=== PATIENT | female | born 1990 | race Hispanic/Latino ===

== ENCOUNTER 2017-03-03 00:58 | Inpatient (IN) ==
[2017-03-03] MEDS ORDERED: LR 1,000 ML IV SCH (01:24)
[2017-03-03] MEDS ORDERED: STADOL IV PRN (01:24)
[2017-03-03] MEDS ORDERED: PITOCIN 30 UNITS/LR 30 UNITS/500 ML IV.SOLN IV SCH (01:24)
[2017-03-03] MEDS ORDERED: PEPCID PO ONE (01:24)
[2017-03-03] MEDS ORDERED: AMPICILLIN 2 GM/NS 2 GM/100 ML IVPB IV ONE (01:24)
[2017-03-03] MEDS ORDERED: PEPCID IV PRN (01:24)
[2017-03-03] MEDS ORDERED: ZOFRAN IV PRN (01:24)
[2017-03-03] MEDS ORDERED: KEFZOL 1 GM/D5W 1 GM/50 ML IVPB IV PRN (01:24)
[2017-03-03] MEDS ORDERED: REGLAN PO ONE (01:24)
[2017-03-03] MEDS ORDERED: TYLENOL PO PRN (01:24)
[2017-03-03] MEDS ORDERED: PEPCID PO PRN (01:24)
[2017-03-03] MEDS ORDERED: SODIUM CHLORIDE 0.9% INJ SCH (01:30)
[2017-03-03 01:59] LABS: MANUAL DIFF NEEDED? NO
[2017-03-03 02:09] LABS: BASO% 0.2 % (0.0-0.8); EOS# 0.02 X1000 (0.0-0.7); EOS% 0.2 % (0.0-10.0); HEMATOCRIT 32.9 % (37.0-47.0); HEMOGLOBIN 10.8 g/dL (12.0-16.0); IMM GRAN# 0.02 X1000 (0.0-0.04); IMM GRAN% 0.2 % (0.0-0.5); LYMPH# 1.23 X1000 (1.2-3.4); LYMPH% 12.9 % (20.5-51.1); MCH 28.2 PG (27-31); MCHC 32.8 g/dL (33-37); MCV 85.9 FL (81-99); MONO# 0.58 X1000 (0.11-0.59); MONO% 6.1 % (1.7-9.3); MPV 13.3 FL (7.4-10.4); NEUT% 80.4 % (42.2-75.2); PLT 165 X1000 (130-400); RBC 3.83 XMIL (4.2-5.4)
[2017-03-03] MEDS ORDERED: BOOSTRIX VACCINE IM ONE (02:55)
[2017-03-03] MEDS ORDERED: M-M-R II VACCINE SUBQ ONE (02:55)
[2017-03-03] MEDS ORDERED: PITOCIN 20 UNITS/LR 20 UNITS/1,000 ML IV.SOLN IV SCH (02:55)
[2017-03-03] MEDS ORDERED: AMBIEN PO PRN (02:55)
[2017-03-03] MEDS ORDERED: PERI MEDS (DERMOPLAST/NUPERCAINAL/TUCKS) MISC PRN (02:55)
[2017-03-03] MEDS ORDERED: BENADRYL IV PRN (02:55)
[2017-03-03] MEDS ORDERED: PITOCIN IM PRN (02:55)
[2017-03-03] MEDS ORDERED: XYLOCAINE-MPF 1% INJ PRN (02:55)
[2017-03-03] MEDS ORDERED: CYTOTEC PO PRN (02:55)
[2017-03-03] MEDS ORDERED: BENADRYL PO PRN (02:55)
[2017-03-03] MEDS ORDERED: PERCOCET-10 PO PRN (02:55)
[2017-03-03] MEDS ORDERED: MINERAL OIL PO PRN (02:55)
[2017-03-03] MEDS ORDERED: HYDROXYZINE PO PRN (02:55)
[2017-03-03] MEDS ORDERED: PITOCIN 30 UNITS/LR 30 UNITS/500 ML IV.SOLN IV ONE (02:55)
[2017-03-03] MEDS ORDERED: HYDROXYZINE IM PRN (02:55)
[2017-03-03] MEDS: PERCOCET-5 PO PRN ×2 (03:30→13:18)
[2017-03-03] MEDS: MOTRIN PO PRN ×2 (03:30→13:18)
[2017-03-03] MEDS ORDERED: AMPICILLIN 1 GM/NS 1 GM/50 ML IVPB IV SCH (05:27)
--- NOTE | 2017-03-03 08:43 | HISTORY AND PHYSICAL ---
CHIEF COMPLAINT: Contractions. HISTORY OF PRESENT ILLNESS: This is a 26-year-old, G 2, P 1-0-0-1 with intrauterine between 35 and 37 weeks by a 35-week ultrasound, who presented to [place] this evening with complaints of contractions .the patient was previously seen earlier in the afternoon on 03/02/2017, found to be in latent labor and discharged home. On presentation, patient was noted to be 8 cm with a bulging bag. Cephalic presentation. The patient notes no vaginal bleeding. No fevers, chills, nausea, vomiting, chest pain, shortness of breath. Patient has good movement. Contractions q. 2 minutes. OBSTETRICAL HISTORY: G 1 full-term vaginal delivery. G 2 current. 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 PAST MEDICAL HISTORY: Denies. PAST SURGICAL HISTORY: Denies. MEDICATIONS: None. ALLERGIES: No known drug allergies. SOCIAL: Denies alcohol, tobacco or illicit drug use. FAMILY HISTORY: Noncontributory. REVIEW OF SYSTEMS: Otherwise negative. PHYSICAL EXAMINATION: GENERAL: Well-developed, well-nourished, female in no acute distress. HEENT: Pupils equal, round, react to light. Extraocular muscle intact. CHEST: Crepitation bilaterally. CV: Regular rate and rhythm. No murmurs, rubs, or gallops. ABDOMEN: Soft, nontender, gravid. EXTREMITIES: No clubbing, cyanosis, or edema. SKIN: No focal lesions. NEURO: No focal deficits. PELVIC: Sterile vaginal exam revealed a cervix that was 8 cm dilated, 90% effaced, -1 station. Membranes were ruptured. Clear fluid was noted. ASSESSMENT AND PLAN: 1. Intrauterine , between 35 and 37 weeks. 2. Active labor. 3. Group B Streptococcus unknown. 4. No care. PLAN: Admit to Labor and Delivery. Place on continuous electronic monitoring. Will anticipate normal spontaneous vaginal delivery. Ampicillin x1 dose was given for GBS prophylaxis on arrival. cc: Alli Khan MD
[2017-03-03] MEDS: PERICOLACE PO SCH (20:17)
[2017-03-04 06:33] LABS: HEMATOCRIT 29.7 % (37.0-47.0); HEMOGLOBIN 9.3 g/dL (12.0-16.0); MCH 27.8 PG (27-31); MCHC 31.3 g/dL (33-37); MCV 88.7 FL (81-99); MPV 13.4 FL (7.4-10.4); RBC 3.35 XMIL (4.2-5.4)
[2017-03-04] MEDS: MOTRIN PO PRN ×2 (10:06→18:15)
[2017-03-04] MEDS: PERICOLACE PO SCH (20:39)
[2017-03-05 08:08] VITALS: BP 116/74
== END 2017-03-05 12:05 | disposition home or self-care (01) ==
LOC: P.OPLD 00:58 → P.LD 01:03 → P.WC 20:05
PROVIDERS: ADMIT Obstetrics & Gynecology; ATTEND Obstetrics & Gynecology

== ENCOUNTER 2019-06-28 22:55 | Inpatient (IN) ==
[2019-06-28 23:21] LABS: URINE SOURCE VOIDED
[2019-06-28 23:36] LABS: BILIRUBIN URINE NEGATIVE (NEGATIVE); BLOOD URINE NEGATIVE (NEGATIVE); CLARITY CLEAR (CLEAR); COLOR YELLOW; GLUCOSE URINE NEGATIVE (NEGATIVE); KETONE URINE NEGATIVE (NEGATIVE); LEUKOCYTES URINE NEGATIVE (NEGATIVE); NITRITE URINE NEGATIVE (NEGATIVE); PH URINE 6.5; PROTEIN URINE NEGATIVE (NEGATIVE); SP GRAVITY URINE <= 1.005; UROBILINOGEN URINE 0.2 EU/dL (0.2-1.0)
[2019-06-28 23:45] LABS: UR AMPHETAMINES QUAL NONE DETECTED (NONE DETECT); UR BARBITUATES QUAL NONE DETECTED (NONE DETECT); UR BENZODIAZEPIN QUAL NONE DETECTED (NONE DETECT); UR CANNABINOIDS QUAL NONE DETECTED (NONE DETECT); UR COCAINE QUAL NONE DETECTED (NONE DETECT); UR METHADONE QUAL NONE DETECTED (NONE DETECT); UR OPIATES QUAL NONE DETECTED (NONE DETECT); UR OXYCODONE QUAL NONE DETECTED (NONE DETECT); UR PCP QUAL NONE DETECTED (NONE DETECT)
[2019-06-28 23:57] LABS: BASO# 0.02 X1000 (0.0-0.2); BASO% 0.2 % (0.0-0.8); EOS# 0.03 X1000 (0.0-0.7); EOS% 0.4 % (0.0-10.0); HEMATOCRIT 36.1 % (37.0-47.0); HEMOGLOBIN 11.5 g/dL (12.0-16.0); IMM GRAN# 0.04 X1000 (0.0-0.04); IMM GRAN% 0.5 % (0.0-0.5); LYMPH# 1.24 X1000 (1.2-3.4); LYMPH% 14.7 % (20.5-51.1); MCH 28.5 PG (27-31); MCHC 31.9 g/dL (33-37); MCV 89.4 FL (81-99); MONO# 0.52 X1000 (0.11-0.59); MONO% 6.2 % (1.7-9.3); MPV 12.3 FL (7.4-10.4); NEUT# 6.56 X1000 (1.4-6.5); PLT 197 X1000 (130-400); RBC 4.04 XMIL (4.2-5.4); RDW 13.8 % (11.5-14.5); WBC 8.41 X1000 (4.8-10.8)
[2019-06-29 01:10] LABS: RPR NON-REACTIVE (NONREACTIVE); RUBELLA SCREEN IMMUNE (IMMUNE)
[2019-06-29 01:11] LABS: RAPID HIV PRESUMPTIVE NEGATIVE
[2019-06-29] MEDS ORDERED: REGLAN PO ONE (01:21)
[2019-06-29] MEDS ORDERED: PEPCID IV PRN (01:21)
[2019-06-29] MEDS ORDERED: STADOL IV PRN (01:21)
[2019-06-29] MEDS ORDERED: KEFZOL 1 GM/D5W 1 GM/50 ML IVPB IV PRN (01:21)
[2019-06-29] MEDS ORDERED: PEPCID PO ONE (01:21)
[2019-06-29] MEDS ORDERED: TYLENOL PO PRN (01:21)
[2019-06-29] MEDS ORDERED: PEPCID PO PRN (01:21)
[2019-06-29] MEDS ORDERED: AMPICILLIN 2 GM/NS 2 GM/100 ML IVPB IV ONE (01:21)
[2019-06-29] MEDS ORDERED: ZOFRAN IV PRN (01:21)
[2019-06-29] MEDS ORDERED: SODIUM CHLORIDE 0.9% INJ SCH (01:30)
[2019-06-29] MEDS ORDERED: PITOCIN 30 UNITS/NS 30 UNIT/500 ML IV.SOLN IV SCH ×2 (01:30→07:00)
[2019-06-29] MEDS: LR 1,000 ML IV SCH ×2 (01:55→05:34)
[2019-06-29] MEDS ORDERED: AMPICILLIN 1 GM/NS 1 GM/50 ML IVPB IV SCH (05:23)
--- NOTE | 2019-06-29 06:19 | OB/GYN PROGRESS NOTE ---
Progress Note OB - . OB Progress Note: Vital Signs - 24 hr 06/28/19 22:38 06/28/19 22:47 06/28/19 23:10 Temperature 98 F 98 F 97.6 F Pulse Rate 80 80 81 Respiratory Rate 16 18 18 Blood Pressure 104/70 104/70 109/70 O2 Sat by Pulse Oximetry 98 98 97 06/29/19 04:00 Temperature Pulse Rate 78 Respiratory Rate 18 Blood Pressure 149/73 O2 Sat by Pulse Oximetry 98 Laboratory Results - last 24 hr 06/28/19 06/28/19 06/28/19 23:08 23:08 23:37 WBC RBC Hgb Hct MCV MCH MCHC RDW Std Deviation Plt Count MPV Immature Gran % (Auto) Neut % (Auto) Lymph % (Auto) [place] % (Auto) Eos % (Auto) Baso % (Auto) Immature Gran # (Auto) Neut # (Auto) Lymph # (Auto) [place] # (Auto) Eos # (Auto) Baso # (Auto) Glucose 87 Urine Source VOIDED Urine Color YELLOW Urine Clarity CLEAR Urine pH 6.5 Ur Specific [place] <= 1.005 Urine Protein NEGATIVE Urine Ketones NEGATIVE Urine Blood NEGATIVE Urine Nitrite NEGATIVE Urine Bilirubin NEGATIVE Urine Urobilinogen 0.2 Urine WBC NEGATIVE Urine Glucose NEGATIVE Urine Opiates Screen NONE DETECTED Ur Oxycodone Screen NONE DETECTED Ur Methadone, Qual NONE DETECTED Ur Barbiturates Screen NONE DETECTED Ur Phencyclidine Scrn NONE DETECTED Ur Amphetamines Screen NONE DETECTED U Benzodiazepines Scrn NONE DETECTED Urine Cocaine Screen NONE DETECTED U Cannabinoids Screen NONE DETECTED RPR HIV 1&2 Antibody Rapid Rubella Immunity Screen Blood Type Antibody Screen 06/28/19 06/28/19 06/28/19 23:37 23:37 23:37 WBC 8.41 RBC 4.04 L Hgb 11.5 L Hct 36.1 L MCV 89.4 MCH 28.5 MCHC 31.9 L RDW Std Deviation 13.8 Plt Count 197 MPV 12.3 H Immature Gran % (Auto) 0.5 Neut % (Auto) 78.0 H Lymph % (Auto) 14.7 L [place] % (Auto) 6.2 Eos % (Auto) 0.4 Baso % (Auto) 0.2 Immature Gran # (Auto) 0.04 Neut # (Auto) 6.56 H Lymph # (Auto) 1.24 [place] # (Auto) 0.52 Eos # (Auto) 0.03 Baso # (Auto) 0.02 Glucose Urine Source Urine Color Urine Clarity Urine pH Ur Specific [place] Urine Protein Urine Ketones Urine Blood Urine Nitrite Urine Bilirubin Urine Urobilinogen Urine WBC Urine Glucose Urine Opiates Screen Ur Oxycodone Screen Ur Methadone, Qual Ur Barbiturates Screen Ur Phencyclidine Scrn Ur Amphetamines Screen U Benzodiazepines Scrn Urine Cocaine Screen U Cannabinoids Screen RPR NON-REACTIVE HIV 1&2 Antibody Rapid PRESUMPTIVE NEGATIVE Rubella Immunity Screen IMMUNE Blood Type A POSITIVE Antibody Screen NEGATIVE CC: CTX HPI: 28 y/o at 39.6 by 8 wk ultrasound at [facility], with no PNC, who presented with SOOL. Reports active baby, no vb, lof, PIH sx. PMX: Denies PSX: Denies ALL: NKDA Social: No AN Family NC OB: x 2 AF/VSS A&O NAD CTAB RRR S/ND/Gravid No C/C/E FHTs reassuring TOCO: Q3-4 CVX: /-1/vertex/BOWI A/P 28 y/o with no PNC in active labor - anticipate - Desires fertility.
[2019-06-29] MEDS ORDERED: AMBIEN PO PRN (06:46)
[2019-06-29] MEDS ORDERED: HYDROXYZINE IM PRN (06:46)
[2019-06-29] MEDS ORDERED: BOOSTRIX VACCINE IM ONE (06:46)
[2019-06-29] MEDS ORDERED: PERI MEDS (DERMOPLAST/NUPERCAINAL/TUCKS) MISC PRN (06:46)
[2019-06-29] MEDS ORDERED: BENADRYL IV PRN (06:46)
[2019-06-29] MEDS ORDERED: M-M-R II VACCINE SUBQ ONE (06:46)
[2019-06-29] MEDS ORDERED: CYTOTEC PO PRN (06:46)
[2019-06-29] MEDS ORDERED: PITOCIN IM PRN (06:46)
[2019-06-29] MEDS ORDERED: ATARAX PO PRN (06:46)
[2019-06-29] MEDS ORDERED: BENADRYL PO PRN (06:46)
[2019-06-29] MEDS ORDERED: XYLOCAINE-MPF 1% INJ PRN (06:46)
--- NOTE | 2019-06-29 06:46 | PROVIDER PROGRESS NOTE ---
- Subjective Vaginal Delivery Note. 28 y/o with no PNC who presented with SOOL. Patient progressed to C/C/+3. AROM clear meconium. male over intact perineum. Placenta delivered spontaneously with trailing membranes. 05/12 --> NBN. EBL 300 cc, correct counts x 3, no complications. Physical Exam Objective Vital Signs - 8 hr 06/28/19 22:47 06/28/19 23:10 06/29/19 04:00 Temperature 98 F 97.6 F Pulse Rate 80 81 78 Respiratory Rate 18 18 18 Blood Pressure 104/70 109/70 149/73 O2 Sat by Pulse Oximetry 98 97 98 Active Medications Generic Name Dose Route Start Last Admin Trade Name Freq PRN Reason Stop Dose Admin Acetaminophen 650 mg 06/29/19 01:21 Tylenol PO Q4-6H PRN PRN Headache Butorphanol Tartrate 2 mg 06/29/19 01:21 Stadol IV PRN PRN Pain Famotidine 40 mg 06/29/19 01:21 Pepcid PO Q12H PRN PRN GI upset or indigestion Famotidine 20 mg 06/29/19 01:21 Pepcid IV Q12H PRN PRN GI upset or indigestion Ampicillin Sodium 1 gm in 50 mls @ 100 mls/hr 06/29/19 05:23 06/29/19 05:33 Ampicillin 1 Gm/Ns IV 100 mls/hr Q4H KARLIE Administration Cefazolin Sodium/Dextrose 1 gm in 50 mls @ 100 mls/hr 06/29/19 01:21 Kefzol 1 Gm/D5w IV ONCE PRN PRN SECTION Oxytocin/Sodium Chloride 30 unit in 500 mls @ 0 mls/hr 06/29/19 01:30 Pitocin 30 Units/Ns IV .Q0M KARLIE As Directed Lactated Ringer's 1,000 mls @ 0 mls/hr 06/29/19 01:30 06/29/19 05:34 Lr IV 125 mls/hr .Q0M KARLIE Administration As Directed Ondansetron HCl 4 mg 06/29/19 01:21 Zofran IV PRN PRN Nausea Sodium Chloride 5 - 10 ml 06/29/19 01:30 Sodium Chloride 0.9% INJ DIRECTED KARLIE Laboratory Results - last 24 hr 06/28/19 06/28/19 06/28/19 23:08 23:08 23:37 WBC RBC Hgb Hct MCV MCH MCHC RDW Std Deviation Plt Count MPV Immature Gran % (Auto) Neut % (Auto) Lymph % (Auto) [place] % (Auto) Eos % (Auto) Baso % (Auto) Immature Gran # (Auto) Neut # (Auto) Lymph # (Auto) [place] # (Auto) Eos # (Auto) Baso # (Auto) Glucose 87 Urine Source VOIDED Urine Color YELLOW Urine Clarity CLEAR Urine pH 6.5 Ur Specific [place] <= 1.005 Urine Protein NEGATIVE Urine Ketones NEGATIVE Urine Blood NEGATIVE Urine Nitrite NEGATIVE Urine Bilirubin NEGATIVE Urine Urobilinogen 0.2 Urine WBC NEGATIVE Urine Glucose NEGATIVE Urine Opiates Screen NONE DETECTED Ur Oxycodone Screen NONE DETECTED Ur Methadone, Qual NONE DETECTED Ur Barbiturates Screen NONE DETECTED Ur Phencyclidine Scrn NONE DETECTED Ur Amphetamines Screen NONE DETECTED U Benzodiazepines Scrn NONE DETECTED Urine Cocaine Screen NONE DETECTED U Cannabinoids Screen NONE DETECTED RPR HIV 1&2 Antibody Rapid Rubella Immunity Screen Blood Type Antibody Screen 06/28/19 06/28/19 06/28/19 23:37 23:37 23:37 WBC 8.41 RBC 4.04 L Hgb 11.5 L Hct 36.1 L MCV 89.4 MCH 28.5 MCHC 31.9 L RDW Std Deviation 13.8 Plt Count 197 MPV 12.3 H Immature Gran % (Auto) 0.5 Neut % (Auto) 78.0 H Lymph % (Auto) 14.7 L [place] % (Auto) 6.2 Eos % (Auto) 0.4 Baso % (Auto) 0.2 Immature Gran # (Auto) 0.04 Neut # (Auto) 6.56 H Lymph # (Auto) 1.24 [place] # (Auto) 0.52 Eos # (Auto) 0.03 Baso # (Auto) 0.02 Glucose Urine Source Urine Color Urine Clarity Urine pH Ur Specific [place] Urine Protein Urine Ketones Urine Blood Urine Nitrite Urine Bilirubin Urine Urobilinogen Urine WBC Urine Glucose Urine Opiates Screen Ur Oxycodone Screen Ur Methadone, Qual Ur Barbiturates Screen Ur Phencyclidine Scrn Ur Amphetamines Screen U Benzodiazepines Scrn Urine Cocaine Screen U Cannabinoids Screen RPR NON-REACTIVE HIV 1&2 Antibody Rapid PRESUMPTIVE NEGATIVE Rubella Immunity Screen IMMUNE Blood Type A POSITIVE Antibody Screen NEGATIVE
[2019-06-29] MEDS: MOTRIN PO PRN ×2 (06:59→15:13)
[2019-06-29] MEDS ORDERED: PITOCIN 20 UNITS/NS 20 UNITS/1,000 ML IV.SOLN IV SCH (07:00)
[2019-06-29] MEDS: PERICOLACE PO SCH (20:42)
[2019-06-29 22:01] LABS: HIV ANTIBODY SCREEN SEE COMMENTS
[2019-06-30 06:14] LABS: BASO# 0.02 X1000 (0.0-0.2); BASO% 0.3 % (0.0-0.8); EOS# 0.07 X1000 (0.0-0.7); EOS% 1.1 % (0.0-10.0); HEMATOCRIT 31.2 % (37.0-47.0); HEMOGLOBIN 9.8 g/dL (12.0-16.0); IMM GRAN# 0.03 X1000 (0.0-0.04); IMM GRAN% 0.5 % (0.0-0.5); LYMPH# 1.65 X1000 (1.2-3.4); LYMPH% 24.8 % (20.5-51.1); MCH 28.6 PG (27-31); MCHC 31.4 g/dL (33-37); MONO# 0.58 X1000 (0.11-0.59); MONO% 8.7 % (1.7-9.3); MPV 12.4 FL (7.4-10.4); NEUT# 4.29 X1000 (1.4-6.5); NEUT% 64.6 % (42.2-75.2); PLT 171 X1000 (130-400); RBC 3.43 XMIL (4.2-5.4); WBC 6.64 X1000 (4.8-10.8)
--- NOTE | 2019-06-30 07:34 | OB/GYN PROGRESS NOTE ---
- Subjective Pt seen and examined. Currently w/o complaints. Pain well controlled. Ambulating and urinating w/o difficulty. tolerating regular diet. denies fever/c/n/v OB Physical Exam Vital Signs - 8 hr 06/30/19 00:45 Temperature 96.8 F L Pulse Rate 73 Respiratory Rate 16 Blood Pressure 85/53 O2 Sat by Pulse Oximetry 97 - CONSTITUTIONAL General Appearance: appears well, alert, no apparent distress - RESPIRATORY Respiratory: lungs clear, normal breath sounds - CARDIOVASCULAR Cardiovascular: regular rate, rhythm - GASTROINTESTINAL (ABDOMEN) Abdominal Exam: non tender, soft - MUSCULOSKELETAL Extremity: no calf tenderness - PSYCHIATRIC Psych/Mental Status: normal mood/affect, oriented x 3 Active Medications Generic Name Dose Route Start Last Admin Trade Name Freq PRN Reason Stop Dose Admin Acetaminophen 650 mg 06/29/19 01:21 06/29/19 20:42 Tylenol PO 650 mg Q4-6H PRN PRN Administration Headache Benzocaine 1 each 06/29/19 06:46 [place] Meds (Dermoplast/Nupercainal/Tucks) MISC 3-4XDAY PRN PRN episiotomy/hemorrhoids Butorphanol Tartrate 2 mg 06/29/19 01:21 Stadol IV PRN PRN Pain Diphenhydramine HCl 12.5 mg 06/29/19 06:46 Benadryl IV Q4H PRN PRN Itching Diphenhydramine HCl 25 mg 06/29/19 06:46 Benadryl PO Q4H PRN PRN Itching Famotidine 40 mg 06/29/19 01:21 Pepcid PO Q12H PRN PRN GI upset or indigestion Famotidine 20 mg 06/29/19 01:21 Pepcid IV Q12H PRN PRN GI upset or indigestion Hydroxyzine HCl 50 mg 06/29/19 06:46 Atarax PO Q3-4H PRN PRN Nausea Hydroxyzine HCl 50 mg 06/29/19 06:46 Hydroxyzine IM Q3-4H PRN PRN Nausea Cefazolin Sodium/Dextrose 1 gm in 50 mls @ 100 mls/hr 06/29/19 01:21 Kefzol 1 Gm/D5w IV ONCE PRN PRN SECTION Lactated Ringer's 1,000 mls @ 0 mls/hr 06/29/19 01:30 06/29/19 05:34 Lr IV 125 mls/hr .Q0M KARLIE Administration As Directed Oxytocin/Sodium Chloride 20 units in 1,000 mls @ 0 mls/hr 06/29/19 07:00 06/29/19 07:42 Pitocin 20 Units/Ns IV 125 mls/hr .Q0M KARLIE Administration As Directed Ibuprofen 800 mg 06/29/19 06:46 06/29/19 15:13 Motrin PO 800 mg Q8H PRN PRN Administration cramping Lidocaine HCl 30 ml 06/29/19 06:46 Xylocaine-Mpf 1% INJ PRN PRN Perineal repair Misoprostol 800 microgm 06/29/19 06:46 Cytotec PO PRN PRN Severe bleeding Ondansetron HCl 4 mg 06/29/19 01:21 Zofran IV PRN PRN Nausea Oxytocin 20 unit 06/29/19 06:46 Pitocin IM PRN PRN Severe bleeding Senna/Docusate Sodium 1 each 06/29/19 21:00 06/29/19 20:42 Pericolace PO 1 each QHS KARLIE Administration Sodium Chloride 5 - 10 ml 06/29/19 01:30 Sodium Chloride 0.9% INJ DIRECTED KARLIE Zolpidem Tartrate 10 mg 06/29/19 06:46 Ambien PO HS PRN PRN Sleep Laboratory Results - last 24 hr 06/29/19 06/30/19 01:11 05:08 WBC 6.64 RBC 3.43 L Hgb 9.8 L Hct 31.2 L MCV 91.0 MCH 28.6 MCHC 31.4 L RDW Std Deviation 14.0 Plt Count 171 MPV 12.4 H Immature Gran % (Auto) 0.5 Neut % (Auto) 64.6 Lymph % (Auto) 24.8 [place] % (Auto) 8.7 Eos % (Auto) 1.1 Baso % (Auto) 0.3 Immature Gran # (Auto) 0.03 Neut # (Auto) 4.29 Lymph # (Auto) 1.65 [place] # (Auto) 0.58 Eos # (Auto) 0.07 Baso # (Auto) 0.02 HIV 1&2 Antibody Screen SEE COMMENTS - Assessment & Plan (1) Vaginal delivery Status: Resolved - Progress Note Disposition: 28yo PPD#1 s/p -HD stable -reviewed PP hgb, will start ferrous sulfate -encouraged oob to ambulation -reg diet -continue routine pp care -plan for d/c home tomorrow
[2019-06-30 08:26] LABS: HEPATITIS B SURFACE ANTIGEN SEE COMMENTS
[2019-06-30] MEDS: MOTRIN PO PRN ×2 (09:58→20:11)
[2019-06-30] MEDS: PERICOLACE PO SCH (20:11)
[2019-07-01 07:59] VITALS: BP 98/59
--- NOTE | 2019-07-01 13:49 | DISCHARGE SUMMARY ---
ADMISSION DATE: 06/29/2019 DISCHARGE DATE: 07/01/2019 ADMISSION DIAGNOSIS: IUP 39-6/7 weeks with no care in active labor. FINAL DIAGNOSIS: 1. Intra-uterine 39-6/7th's weeks with no care in active labor with spontaneous vaginal delivery of a male infant over intact perineum. 2. 's of 9 and 9; this was on 06/29/2019. PROCEDURE: Spontaneous vaginal delivery. BRIEF HISTORY: A 28-year-old female G3, P2 at 39 and 6/7 weeks by an 8 week ultrasound scan at [facility] presents with signs of labor and no care. She reports active baby. No vaginal bleeding or leaking of fluid or PIH symptoms. PAST MEDICAL HISTORY: Unremarkable. PAST SURGICAL HISTORY: None. ALLERGIES: No known drug allergies. SOCIAL HISTORY: No tobacco, alcohol, or drug use. FAMILY HISTORY: Noncontributory. OB HISTORY: G3, P2. Spontaneous vaginal delivery x2. PHYSICAL EXAMINATION: Vital Signs: Afebrile. Vital signs stable. Alert and oriented. No apparent distress. Lungs: Clear to auscultation. Heart: Regular rate and rhythm. Abdomen: Soft, nondistended gravid. Extremities: No clubbing, cyanosis, or edema noted. heart rate reassuring heart tones. Uterine contractions every 3 to 4 minutes. Pelvic: Cervix was 8 cm dilated, 90% effaced, -1 station. Vertex presentation. Bag of membranes intact. ASSESSMENT AND PLAN: A 28-year-old female G3, P2 at term in active labor. Anticipate spontaneous vaginal delivery. The patient progressed to have a spontaneous vaginal delivery on 06/29/2019 of a male with Apgars of 9 and 9. Patient's post course was unremarkable. Her hemoglobin had dropped from 11.5 to 9.8 and her hematocrit was 36.1 and lab draw was 31.2. The patient was ambulatory. Stable vital signs and mild lochia and able to tolerate p.o. and on day #2 it was felt the patient could be discharged home. DISCHARGE INSTRUCTIONS: Patient instructed to follow up in 6 weeks. She was given instructions on pelvic rest for the next 6 weeks. Patient will follow up with Dr. Lubin for care. Patient given prescriptions for [place] 5 dispensed 20 with no refills. Colace 100 mg dispensed 30 with 1 refill. Iron sulfate 325 mg, dispense 30 with 1 refill and Motrin 800 mg dispensed 30 with 1 refill. cc: MD Shantanu Andrade III, MD MTDD
== END 2019-07-01 10:55 | disposition home or self-care (01) | DRG 807 ==
LOC: OPLD 22:55 → LD 22:57
PROVIDERS: ADMIT Obstetrics & Gynecology; ATTEND Obstetrics & Gynecology